=== PATIENT | female | born 1990 | race Caucasian/White ===

== ENCOUNTER 2017-04-29 20:12 | Emergency (ER) | payer OTHER ==
[2017-04-29 22:29] LABS: HEMOGLOBIN 13.9 gm/dl (12.3-15.3); RED BLOOD COUNT 4.47 M/UL (4.00-5.10); WHITE BLOOD COUNT 5.1 K/UL (4.5-11.0)
[2017-04-29 22:37] LABS: BUN/CREATININE RATIO 16 (0-10)
== END 2017-04-30 00:20 | disposition home or self-care (01) ==
LOC: ER1 20:12
PROVIDERS: Student in an Organized Health Care Education/Training Program
DX: R10.12 Left upper quadrant pain (principal); R10.31 Right lower quadrant pain; R10.11 Right upper quadrant pain; R11.0 Nausea; R19.7 Diarrhea, unspecified; R68.83 Chills (without fever); K21.9 Gastro-esophageal reflux disease without esophagitis; Z88.0 Allergy status to penicillin; Z79.899 Other long term (current) drug therapy
CPT/HCPCS: 36415; 80053; 81001; 83690; 84703; 85025; 87086; 96374; 96376; 99284; J2405; J7050; Q9962

== ENCOUNTER 2020-12-02 16:22 | Emergency (ER) | payer OTHER | END 2020-12-02 19:48 | disposition home or self-care (01) | LOC: ER1 16:22 | DX: R51.9 Headache, unspecified (principal); M79.10 Myalgia, unspecified site; Z20.822 Contact with and (suspected) exposure to COVID-19; Z88.0 Allergy status to penicillin; Z88.7 Allergy status to serum and vaccine | CPT/HCPCS: 99283; U0002 ==

== ENCOUNTER → 2020-12-13 | Outpatient (CLI) | payer OTHER ==
[~2020-12-13] MED LIST: FLAGYL500 MG PO; LEVOFLOXACIN500 MG PO; SYNTHROID75 MCG PO; TOPAMAX25 MG PO; VITAMIN D PO; ZOFRAN ODT 4 MG4 MG PO
== END ==
LOC: KOH-I 12-12 15:15 → US 15:30
DX: E04.0 Nontoxic diffuse goiter (principal)
CPT/HCPCS: 76536

== ENCOUNTER 2021-01-18 09:27 | Observation (INO) | payer OTHER ==
[~2021-01-18] VITALS: Ht 167.6 cm; Wt 109.8 kg
[2021-01-18 11:30] LABS: HEMOGLOBIN 14.5 gm/dl (12.3-15.3); RED BLOOD COUNT 4.66 M/UL (4.00-5.10); WHITE BLOOD COUNT 19.3 K/UL (4.5-11.0)
[2021-01-18 11:56] LABS: BUN/CREATININE RATIO 12 (0-10)
[2021-01-18] MEDS ORDERED: TOPAMAX25 MG PO (22:15)
[2021-01-18] MEDS ORDERED: SYNTHROID75 MCG PO (22:15)
[2021-01-18] MEDS ORDERED: VITAMIN D PO (22:16)
[2021-01-19 07:02] LABS: HEMOGLOBIN 12.3 gm/dl (12.3-15.3); RED BLOOD COUNT 4.01 M/UL (4.00-5.10); WHITE BLOOD COUNT 7.1 K/UL (4.5-11.0)
[2021-01-19 07:19] LABS: BUN/CREATININE RATIO 9 (0-10)
[2021-01-19 11:13] LABS: ADENOVIRUS F 40/41 Not Detected (Negative); ASTROVIRUS Not Detected (Negative); CAMPYLOBACTER Not Detected (Negative); CLOSTRIDIUM DIFFICILE TOX A/B Not Detected (Negative); CRYPTOSPORIDIUM Not Detected (Negative); E.COLI 0157 Not Detected (Negative); ENTAMOEBA HISTOLYTICA Not Detected (Negative); ENTEROAGGREGATIVE E.COLI (EAEC Not Detected (Negative); ENTEROPATHOGENIC E.COLI (EPEC) Not Detected (Negative); ENTEROTOXIGENIC E.COLI (ETEC) Not Detected (Negative); GIARDIA LAMBLIA Not Detected (Negative); NOROVIRUS GI/GII Not Detected (Negative); PLESIOMONAS SHIGELLOIDES Not Detected (Negative); ROTOVIRUS A Not Detected (Negative); SALMONELLA Not Detected (Negative); SAPOVIRUS Not Detected (Negative); SHIG/ENTEROINVAS.ECOLI (EIEC) Not Detected (Negative); SHIGA-LIK TOX.PRO.E.COLI (STEC Not Detected (Negative); VIBRIO Not Detected (Negative); VIBRIO CHOLERAE Not Detected (Negative); YERSINIA ENTEROCOLITICA Not Detected (Negative)
[2021-01-20 05:57] LABS: HEMOGLOBIN 12.6 gm/dl (12.3-15.3); RED BLOOD COUNT 4.01 M/UL (4.00-5.10)
[2021-01-20 06:20] LABS: BUN/CREATININE RATIO 11 (0-10)
[2021-01-20] MEDS ORDERED: FLAGYL500 MG PO (11:36)
[2021-01-20] MEDS ORDERED: ZOFRAN ODT 4 MG4 MG PO (11:36)
[2021-01-20] MEDS ORDERED: LEVOFLOXACIN500 MG PO (11:36)
--- NOTE | 2021-01-20 13:01 | NUR ---
STOPPED PATIENTS IV FLUIDS. PATIENTS ARM DISTAL TO IV SIGHT ITCHING AND LOOKS PINK IF SHE HAS BEEN SCRATCHING. PROVIDER AWARE. WILL CONTINUE TO MONITOR.
--- NOTE | 2021-01-20 13:24 | NUR ---
INSTRUCTED PATIENT ON IMPORTANCE OF KEEPING FOLLOW UP APPOINTMENTS TAKE ALL MEDS SCHEDULED. PCP TO MAKE FOLLOW UP WITH DR. RUTHERFORD. VERBALIZED UNDERSTANDING. WILLEM MERCADO R.N.
== END 2021-01-20 15:42 | disposition home or self-care (01) ==
LOC: ER1 09:27 → CDU 13:30 → MED SURG 4 22:05
PROVIDERS: Emergency Medicine; Physician Assistant; ADMIT Internal Medicine
DX: R10.13 Epigastric pain (principal); R10.31 Right lower quadrant pain; R11.2 Nausea with vomiting, unspecified; E87.6 Hypokalemia; D72.828 Other elevated white blood cell count; G43.909 Migraine, unspecified, not intractable, without status migrainosus; E28.2 Polycystic ovarian syndrome; K21.9 Gastro-esophageal reflux disease without esophagitis; E06.3 Autoimmune thyroiditis; E66.9 Obesity, unspecified; Z68.39 Body mass index [BMI] 39.0-39.9, adult; Z79.899 Other long term (current) drug therapy; Z88.0 Allergy status to penicillin; Z88.1 Allergy status to other antibiotic agents
CPT/HCPCS: 36415; 76705; 80053; 81001; 83690; 84703; 85025; 87040; 87507; 96365; 96374; 96375; 96376; 99284; G0378; J1956; J2270; J2405; J7030; Q9967

== ENCOUNTER → 2021-04-25 | Outpatient (CLI) | payer OTHER | LOC: US 12:45 | DX: E04.1 Nontoxic single thyroid nodule (principal) | CPT/HCPCS: 76536 ==

== ENCOUNTER → 2021-05-09 | Outpatient (CLI) | payer OTHER ==
[2021-05-09 12:19] LABS: HEMOGLOBIN 14.5 gm/dl (12.3-15.3); RED BLOOD COUNT 4.62 M/UL (4.00-5.10); WHITE BLOOD COUNT 7.8 K/UL (4.5-11.0)
[2021-05-09 12:41] LABS: BUN/CREATININE RATIO 11 (0-10)
[2021-05-10 10:13] LABS: INSULIN 17.8 uIU/mL (2.6-24.9)
[2021-05-12 15:09] LABS: THYROGLOBULIN ANTIBODY 1.6 IU/mL (0.0-0.9)
== END ==
LOC: LAB 11:07
PROVIDERS: Nurse Practitioner Family
DX: I10 Essential (primary) hypertension (principal); K21.9 Gastro-esophageal reflux disease without esophagitis; E03.9 Hypothyroidism, unspecified; E04.1 Nontoxic single thyroid nodule; R53.82 Chronic fatigue, unspecified; J45.909 Unspecified asthma, uncomplicated; R63.1 Polydipsia
CPT/HCPCS: 36415; 80053; 80061; 82150; 83036; 83690; 84443; 85025; 86376; 86800

== ENCOUNTER 2021-05-27 19:40 | Emergency (ER) | payer OTHER ==
[2021-05-27 20:19] LABS: HEMOGLOBIN 13.9 gm/dl (12.3-15.3); RED BLOOD COUNT 4.42 M/UL (4.00-5.10); WHITE BLOOD COUNT 8.4 K/UL (4.5-11.0)
[2021-05-27 20:23] LABS: BORDETELLA PARAPERTUSSIS Not Detected (Not Detectd); BORDETELLA PERTUSSIS Not Detected (Not Detectd); CHLAMYDIA PNEUMONIAE Not Detected (Not Detectd); CORONAVIRUS HKU1 Not Detected (Not Detectd); CORONAVIRUS NL63 Not Detected (Not Detectd); CORONAVIRUS OC43 Not Detected (Not Detectd); CORONOAVIRUS 229E Not Detected (Not Detectd); HUMAN METAPNEUMOVIRUS Not Detected (Not Detectd); HUMAN RHINOVIRUS/ENTEROVIRUS Not Detected (Not Detectd); INFLUENZA A Not Detected (Not Detectd); INFLUENZA B Not Detected (Not Detectd); MYCOPLASMA PNEUMONIAE Not Detected (Not Detectd); PARAINFLUENZA VIRUS 1 Not Detected (Not Detectd); PARAINFLUENZA VIRUS 2 Not Detected (Not Detectd); PARAINFLUENZA VIRUS 3 Not Detected (Not Detectd); PARAINFLUENZA VIRUS 4 Not Detected (Not Detectd); RESPIRATORY SYNCYTIAL VIRUS Not Detected (Not Detectd)
[2021-05-27 20:45] LABS: BUN/CREATININE RATIO 13 (0-10)
[2021-05-27 21:22] LABS: SARS-CoV-2 NOT DETECTED (Not Detectd)
== END 2021-05-27 21:45 | disposition home or self-care (01) ==
LOC: ER1 19:40
PROVIDERS: Emergency Medicine; Physician Assistant
DX: R10.9 Unspecified abdominal pain (principal); R51.9 Headache, unspecified; Z20.822 Contact with and (suspected) exposure to COVID-19; Z88.0 Allergy status to penicillin; Z88.8 Allergy status to other drugs, medicaments and biological substances; Z90.49 Acquired absence of other specified parts of digestive tract
CPT/HCPCS: 80053; 81001; 83690; 83735; 84439; 84443; 84703; 85025; 87086; 87633; 96374; 99284; J1885

== ENCOUNTER 2021-06-15 09:52 | Emergency (ER) | payer OTHER | END 2021-06-15 12:14 | disposition home or self-care (01) | LOC: ER1 09:52 | DX: J06.9 Acute upper respiratory infection, unspecified (principal); Z20.822 Contact with and (suspected) exposure to COVID-19 | CPT/HCPCS: 87081; 87880; 99283; U0002 ==

== ENCOUNTER 2021-06-18 17:25 | Emergency (ER) | payer OTHER ==
[2021-06-18 18:55] LABS: HEMOGLOBIN 13.4 gm/dl (12.3-15.3); RED BLOOD COUNT 4.47 M/UL (4.00-5.10); WHITE BLOOD COUNT 12.2 K/UL (4.5-11.0)
[2021-06-18 19:27] LABS: BUN/CREATININE RATIO 16 (0-10)
== END 2021-06-18 20:10 | disposition home or self-care (01) ==
LOC: ER1 17:25
PROVIDERS: Physician Assistant
DX: R07.9 Chest pain, unspecified (principal); R03.0 Elevated blood-pressure reading, without diagnosis of hypertension; Z90.49 Acquired absence of other specified parts of digestive tract; Z88.0 Allergy status to penicillin; Z88.1 Allergy status to other antibiotic agents; Z20.822 Contact with and (suspected) exposure to COVID-19
CPT/HCPCS: 71045; 80053; 82550; 82553; 83874; 84484; 85025; 85379; 93005; 99285; U0002

== ENCOUNTER 2021-07-20 14:20 | Emergency (ER) | payer OTHER | END 2021-07-20 14:55 | disposition home or self-care (01) | LOC: ER1 14:20 | DX: U07.1 COVID-19 (principal); Z88.0 Allergy status to penicillin; Z90.49 Acquired absence of other specified parts of digestive tract | CPT/HCPCS: 99284; U0003 ==

== ENCOUNTER 2022-01-26 19:39 | Emergency (ER) | payer OTHER | END 2022-01-26 20:51 | disposition left against medical advice (07) | LOC: ER1 19:39 | DX: Z53.21 Procedure and treatment not carried out due to patient leaving prior to being seen by health care provider (principal) ==